=== PATIENT | female | born 1985 | race Caucasian/White ===

== ENCOUNTER → 2018-12-25 10:56 | Outpatient (CLI) | payer SELFPAY ==
[2018-12-25 08:59] VITALS: BMI 37.5
[2018-12-25 13:09] LABS: Cholesterol 191 mg/dL (200); High Density Lipoprotein 41 mg/dL; Triglycerides 267 mg/dL; Very Low Density Lipoprotein 53 mg/dL (5-40)
== END ==
PROVIDERS: Family Provider Family Medicine; PCP Family Medicine; Referring Provider Physician Assistant; Visit Provider Physician Assistant
DX: Z02.89 Encounter for other administrative examinations (principal)
CPT/HCPCS: 36415; 80061

== ENCOUNTER → 2019-01-01 11:26 | Outpatient (CLI) | payer SELFPAY ==
[2018-12-25 08:59] VITALS: BMI 37.5
--- NOTE | 2019-01-01 11:30 | EKG12_ITS ---
Test Reason : WELLNESS,PREEMPLOY Blood Pressure : / mmHG Vent. Rate : 068 BPM Atrial Rate : 068 BPM P-R Int : 158 ms QRS Dur : 086 ms QT Int : 390 ms P-R-T Axes : 017 004 012 degrees QTc Int : 414 ms Normal sinus rhythm Normal ECG Confirmed by EDEN ALBERTO ([id number]), online editor NAVID LOVE ([id number]) on 01/03/2019 10:27:39 AM Referred By: Fortino Ponce Confirmed By:EDEN ALBERTO
--- NOTE | 2019-01-01 13:45 | STRESSREP_ITS ---
Stress Test Report Resting EKG: Normal sinus rhythm, normal axis, normal intervals, no evidence of previous myocardial infarction. Treadmill EKG: The patient exercised according to Raymond protocol for 8 minutes and 30 seconds achieving a maximum workload of 10.10 METS. Her resting heart rate was initially 79 beats a minute and carlo to maximum of 184 bpm which represents 99% of the maximal age picked at heart rate. Resting blood pressure is 116/82, and carlo to maximum of 172/80. Test was terminated due to the attainment of target heart rate, dyspnea, leg discomfort. During exercise the patient's heart rate increased as expected. The patient had no dynamic EKG changes to suggest ischemia. Patient had rare PVCs noted. Conclusions normal, adequate, treadmill EKG. Negative for ischemia by EKG criteria. No anginal symptoms noted. Rare PVCs noted. Appropriate blood pressure response to exercise. Average exercise capacity for age. No complic ations.
== END ==
PROVIDERS: Family Provider Family Medicine; PCP Family Medicine; Referring Provider Physician Assistant; Visit Provider Physician Assistant
DX: Z02.89 Encounter for other administrative examinations (principal)
CPT/HCPCS: 93005; 93017

== ENCOUNTER 2021-05-11 12:42 | Emergency (ER) | payer OTHER, SELFPAY ==
[2021-05-11] VITALS (8 sets, daily range): BP systolic 104–118; BP diastolic 72–88; PULSE 93–108; RESP 16–20; TEMP 37.4–37.9; O2SAT 91–100; BMI 40.2
--- NOTE | 2021-05-11 13:07 | CT_ITS ---
STUDY: CTA CHEST REASON FOR EXAM: Female, 35 years old. Hypoxic respiratory failure RADIATION DOSAGE (If Supplied By Facility): CTDIvol = ( 11.475 ) mGy, DLP = ( 450.70 ) mGycm TECHNIQUE: The examination was performed with the intravenous administration of IV 100mL Isovue-370. Post-processing of the angiographic images was performed, with multiplanar reformation and 3D reconstruction. Individualized dose optimization techniques were used for this CT. COMPARISON: Comparison is made with prior chest radiograph done earlier today. FINDINGS: Normal enhancement of the main pulmonary artery and right and left pulmonary arteries. Normal enhancement of the bilateral peripheral pulmonary arteries. There is no demonstrated pulmonary embolism. Normal thoracic aorta and visualized great vessels. There is no demonstrated aortic dissection. Normal heart and pericardium. Normal mediastinum. Normal hilar regions. Normal visualized trachea and bronchi. The lungs are well expanded. There is evidence of diffuse bilateral pulmonary infiltrates in a preferential peripheral distribution suggestive of a pneumonitis associated with Covid. Minimal pleural thickening on the right side. Normal chest wall structures. Normal osseous structures. There is evidence of diffuse fatty infiltration of the liver. CT/CTA Chest W/WO Contrast IMPRESSION: Diffuse bilateral pulmonary infiltrates and a preferential peripheral distribution suggestive of a pneumonitis associated with Covid. Electronically Signed: Ryan Mcmillan MD at 14:46 EST , Service support ,
--- NOTE | 2021-05-11 13:07 | EKG12_ITS ---
Test Reason : NAUSEAA/VOMITING Blood Pressure : / mmHG Vent. Rate : 098 BPM Atrial Rate : 098 BPM P-R Int : 162 ms QRS Dur : 082 ms QT Int : 368 ms P-R-T Axes : 014 002 004 degrees QTc Int : 469 ms Normal sinus rhythm Normal ECG Confirmed by JAIR BALDWIN, EROS ([id number]), newspaper photo editor AMBER WEBER ([id number]) on 05/12/2021 1:37:54 PM Referred By: ZAKI Confirmed By:SONYA ADAM MD
--- NOTE | 2021-05-11 13:15 | ED.VIS.GI ---
HPI HPI - GI History of Present Illness Chief Complaint: Nausea/Vomiting Narrative Narrative: Patient presenting with multiple complaints. She complains of having a cough, mild shortness of breath, fevers and chills. She states this is been going on for about 8 to 9 days. She was tested for COVID-19 last and was positive. Over the last couple of days she developed nausea and vomiting as well as diarrhea. She states that she has some blood tingeing in her sputum as well as her emesis. Patient is not on any blood thinners. Patient states that her fevers broke yesterday. She reports that on the way to the hospital with her her oxygen saturation was 88% on room air. [facility] Medical History (Updated 05/11/21 @ 14:[address] Morro Hammond, ) Diabetes HTN (hypertension) Home Medications hydrochlorothiazide 50 mg PO DAILY 05/11/21 [History Last Taken Unknown] hydroxyzine pamoate 25 mg PO DAILY 05/11/21 [History Last Taken Unknown] ondansetron 4 mg PO Q8H PRN PRN #14 tab 05/11/21 [Rx Last Taken Unknown] sertraline 150 mg PO DAILY 05/11/21 [History Last Taken Unknown] Allergy/AdvReac Type Severity Reaction Status Date / Time amoxicillin Allergy Hives Verified 05/11/21 12:49 metformin Allergy Hives Verified 05/11/21 12:49 oseltamivir [From Tamiflu] Allergy Hives Verified 05/11/21 12:49 Social History Smoking Status: Never smoker [facility] ED Constitutional Constitutional ED: Reports chills and fever(s) ENT ENT ED: Reports rhinorrhea and sore throat Cardiovascular Cardiovascular: Denies chest pain or palpitations Respiratory/Chest Respiratory/Chest: Reports cough and dyspnea Gastrointestinal Gastrointestinal: Reports diarrhea, nausea and vomiting; Denies abdominal pain Genitourinary Genitourinary ED: Denies dysuria or hematuria Musculoskeletal Musculoskeletal: Denies arthralgias or myalgias Integumentary Denies Abrasions or rash Neurologic Neurologic: Reports headache(s); Denies paresthesias or weakness EXAM Physical Exam Const Vital Signs: 05/11/21 12:43 05/11/21 12:48 05/11/21 13:35 Temperature 99.4 F H 99.4 F H Temperature Source Temporal Temporal Pulse Rate 108 H 101 H Respiratory Rate 16 18 Respiratory Effort Short of Breath Respiratory Pattern Normal Blood Pressure 118/88 H Blood Pressure Mean 98 Pulse Ox 95 Oxygen Delivery Method Nasal Cannula Oxygen Flow Rate (L/min) 2 05/11/21 13:38 05/11/21 13:48 05/11/21 14:10 Temperature 100.2 F H Temperature Source Oral Pulse Rate 93 Respiratory Rate 20 H Respiratory Effort Respiratory Pattern Blood Pressure 110/81 H Blood Pressure Mean 90 Pulse Ox 98 100 91 Oxygen Delivery Method Nasal Cannula Nasal Cannula Room Air Oxygen Flow Rate (L/min) 2 2 05/11/21 14:38 Temperature Temperature Source Pulse Rate Respiratory Rate Respiratory Effort Respiratory Pattern Blood Pressure Blood Pressure Mean Pulse Ox 96 Oxygen Delivery Method Room Air Oxygen Flow Rate (L/min) Positive well nourished General Appearance ED: NAD; Negative for pallor HEENT Reports moist mucous membranes normocephalic and atraumatic Eyes PERRL and EOMs intact bilaterally General Eye ED: Negative for pale conjunctiva or scleral icterus Neck no lymphadenopathy, supple and no JVD Cardio regular rhythm Rate: tachycardic GI non-tender and non-distended Palpation: soft Neuro no sensory deficits noted Sensorium / Orientation: alert, oriented to person, oriented to place and oriented to time Motor Exam: strength 5/5 throughout Psych mental status grossly normal and thought process normal Skin General Skin Exam: Negative for jaundice or pallor MDM MDM MDM Narrative Medical decision making narrative: 35-year-old female with history of COVID-19. Patient states she is having hemoptysis which is mild as well as blood in her emesis. Her fevers broke yesterday. She is already been tested and positive for COVID-19. She is currently day 8-9. Patient given Zofran and IV fluids. She does states she has a painful cough but her chest pain is only when she coughs but I did obtain an EKG and on my interpretation this is a sinus rhythm with a ventricular rate of 98 bpm without signs of ischemic change. Chest x-ray on my interpretation shows bilateral pulmonary infiltrates and the radiologist does agree. I did obtain a CTA due to history of COVID-19 as well as hemoptysis and this is negative for PE but does show COVID pneumonitis. CBC shows no leukocytosis. Patient not lymphopenic. Hemoglobin is 13 and therefore stable. Given the patient states that she is having blood tingeing in her emesis this is likely due to irritation to the GI tract and possibly even Yovana-Orourke tear. Potassium is low at 3.0. Creatinine slightly elevated 1.07. Magnesium 1.9. AST is 61 ALT is 65. Patient ambulated on room air and maintain sats of 91% without oxygen supplementation. In the bed she is alternating between 91 and 96% with variable waveforms. Since she is not hypoxic with ambulation she does not qualify for home O2 and she does not require steroids. Patient states that her potassium is typically low and she takes potassium supplements and this is likely due to being on HCTZ. Patient states that her nausea is improved but she will wait to try oral supplementation and do electrolyte replacement with Gatorade's and Pedialyte as well. Patient counseled to monitor her O2 sats at home. I will try for Zofran so that she can tolerate p.o. intake. She is given return precautions. Impression: 1. COVID-19 pneumonitis 2. Hypokalemia 3. Nausea/vomiting 4. Yovana-Orourke tear Lab Data Labs: Laboratory Results - last 24 hr 05/11/21 05/11/21 05/11/21 13:32 13:32 13:32 WBC 4.8 RBC 4.96 Hgb 13.0 Hct 39.8 MCV 80.2 L MCH 26.2 L MCHC 32.7 RDW Std Deviation 39.9 RDW Coeff of Lala 13.7 Plt Count 219 MPV 9.5 Immature Gran % (Auto) 0.600 Neut % (Auto) 72.1 H Lymph % (Auto) 20.4 [place] % (Auto) 6.5 Eos % (Auto) 0.0 Baso % (Auto) 0.4 Absolute Neuts (auto) 3.5 Absolute Lymphs (auto) 0.98 Nucleated RBC % 0 Differential Comment Diff Path Review May foll Atypical Lymphocytes 2+ Platelet Estimate ADEQUATE RBC Morphology NORM C+C Sodium 139 Potassium 3.0 L Chloride 105 Carbon Dioxide 27.0 Anion Gap 7 BUN 13 Creatinine 1.07 H Estim Creat Clear Calc 59.55 Est GFR (MDRD) Af Amer 74 Est GFR (MDRD) Non-Af 61 BUN/Creatinine Ratio 12.1 Glucose 106 Calcium 8.5 Magnesium 1.9 Total Bilirubin 0.50 AST 61 H ALT 65 H Alkaline Phosphatase 55 Troponin I High Sens 6 Total Protein 7.7 Albumin 3.2 Globulin 4.5 H Albumin/Globulin Ratio 0.7 L Radiography Diagnostic Testing: Clinical Impression(s) from Imaging Studies Chest CTA 05/11/21 13:07 IMPRESSION: Diffuse bilateral pulmonary infiltrates and a preferential peripheral distribution suggestive of a pneumonitis associated with Covid. Electronically Signed: Ryan Mcmillan MD at 14:46 EST , Service support , Chest X-Ray 05/11/21 14:20 IMPRESSION: Bilateral patchy pulmonary infiltrates worse in the right hemithorax. No pneumonitis associated with Covid should be ruled out. Electronically Signed: Ryan Mcmillan MD at 14:32 EST , Service support , Discharge Plan Triage Chief Complaint: Nausea/Vomiting ED Provider: Morro Hammond Dx/Rx/DC Orders Clinical Impression: COVID-19 Instructions: Coronavirus Disease 2019 (COVID-19): Caring for Yourself or Others, ED Vomiting (Adult) Prescriptions: New ondansetron 4 mg tablet,disintegrating 4 mg PO Q8H PRN PRN (Reason: Nausea) Qty: 14 RF: 0 No Action hydrochlorothiazide 50 mg tablet 50 mg PO DAILY RF: 0 sertraline 100 mg tablet 150 mg PO DAILY RF: 0 hydroxyzine pamoate 25 mg capsule 25 mg PO DAILY RF: 0 Primary Care Provider: Stanley Walls Referrals: Stanley Walls MD [Primary Care Provider] - Disposition Disposition: Home, Self Care
[2021-05-11] MEDS: Ondansetron 4 MG/2 ML Vial IV (13:28)
[2021-05-11 13:40] LABS: Absolute Lymphocyte Count 0.98 X10^3/uL (0.83-4.51); Absolute Neutrophil Count 3.5 X10^3/uL (2.0-7.7); Basophil# 0.02 X10^3/uL; Basophil% 0.4 % (0-1); Hematocrit 39.8 % (37-47); Lymphocyte # 0.98 X10^3/ul (0.83-4.51); Lymphocyte % 20.4 % (19-41); Mean Corp Hgb Conc 32.7 g/dL (32-36); Mean Corpuscular Hgb 26.2 pg (27.0-32.0); Mean Corpuscular Volume 80.2 fL (81-99); Mean Platelet Vol. 9.5 fl (6.2-12.0); Monocyte# 0.31 X10^3/uL; Monocyte% 6.5 % (0-10); NRBC Flagged by Analyzer 0 % (0-5); Neutrophil # 3.46 X10^3/uL (2.7-7.7); Neutrophil % 72.1 % (47-70); POSITIVE MORPHOLOGY YES; Platelet Count 219 K/mm3 (150-450); RBC Distribution Width CV 13.7 % (11.6-14.6); RBC Distribution Width SD 39.9 fl (35.1-43.9); Red Blood Count 4.96 M/mm3 (4.2-5.4); White Blood Count 4.8 K/mm3 (4.4-11.0)
[2021-05-11 13:48] LABS: Differential Indicated SCAN CRITERIA MET
[2021-05-11 13:57] LABS: ALB/GLOB Ratio 0.7 RATIO (0.9-2.4); AST(SGOT) 61 U/L (15-37); Alanine Aminotransfer ALT/SGPT 65 U/L (13-56); Albumin, Serum 3.2 g/dL (3.2-5.0); Alkaline Phosphatase 55 U/L (45-117); Anion Gap 7 (5-15); BUN 13 mg/dL (7-18); BUN/Creat Ratio 12.1 RATIO (10-20); Calcium,Total 8.5 mg/dL (8.5-10.1); Chloride 105 mmol/L (98-107); Creatinine, Serum 1.07 mg/dL (0.55-1.02); EST Glomerular Filtration Rate 61 mL/min (>60); Est Glom Filt Rate - Afr Amer 74 mL/min (>60); Estimated Creatinine Clearance 59.55 ml/min; Globulin 4.5 g/dL (2.2-4.2); Glucose 106 mg/dL (74-106); Protein, Total 7.7 g/dL (6.4-8.2); Sodium Level 139 mmol/L (136-145); Troponin-I HS 6 pg/mL (3.0-54.0)
--- NOTE | 2021-05-11 14:20 | RAD_ITS ---
STUDY: X-RAY CHEST REASON FOR EXAM: Female, 35 years old. Cough TECHNIQUE: Single AP portable view of the chest. COMPARISON: Comparison is made with prior study 12/25/2018. FINDINGS: EKG electrodes are seen. Bilateral patchy infiltrates worse in the right hemithorax. There tends to be a peripheral distribution. Pneumonitis associated with Covid should be ruled out. There is no demonstrated pleural abnormality. Normal size heart. Normal mediastinum and derrick. Normal visualized pulmonary arteries. Normal visualized aortic arch and descending thoracic aorta. Normal visualized thoracic spine. Normal visualized ribs, clavicles, and shoulders. There is no demonstrated abnormality of the visualized soft tissue structures of the upper abdomen. RAD/Chest 1 View (Portable) IMPRESSION: Bilateral patchy pulmonary infiltrates worse in the right hemithorax. No pneumonitis associated with Covid should be ruled out. Electronically Signed: Ryan Mcmillan MD at 14:32 EST , Service support ,
[2021-05-11 14:25] LABS: Magnesium 1.9 mg/dL (1.6-2.6)
[2021-05-11 14:27] LABS: Atypical Lymphocyte 2+ %; Platelet Estimate ADEQUATE (ADEQ); Red Cell Morphology NORM C+C NORMAL (NORM C&C)
[2021-05-12 13:10] LABS: Pathologist Review Reviewed
== END 2021-05-11 15:21 | disposition home or self-care (01) ==
PROVIDERS: Emergency Provider Student in an Organized Health Care Education/Training Program; PCP Family Medicine; Visit Provider Student in an Organized Health Care Education/Training Program
DX: U07.1 COVID-19 (principal); E11.9 Type 2 diabetes mellitus without complications; J12.82 Pneumonia due to coronavirus disease 2019; E87.6 Hypokalemia; K22.6 Gastro-esophageal laceration-hemorrhage syndrome; I10 Essential (primary) hypertension; Z79.899 Other long term (current) drug therapy
CPT/HCPCS: 71045; 71275; 80053; 83735; 84484; 85025; 93005; 96361; 96374; 99285; J7030; Q9967; J2405